=== PATIENT | male | born 1995 | race Two or more races ===

== ENCOUNTER 2022-12-20 20:30 | Emergency (ER) | payer MEDICAID, OTHER ==
[~2022-12-20] VITALS: Ht 182.9 cm; Wt 67.0 kg
[2022-12-20 21:00] VITALS: BP 115/82
[2022-12-21] MEDS ORDERED: IBUP-1456 PO (02:07)
[2022-12-21] MEDS ORDERED: CYCL-837 PO (02:07)
== END 2022-12-21 02:20 | disposition home or self-care (01) ==
LOC: ER 20:34
DX: S16.1XXA Strain of muscle, fascia and tendon at neck level, initial encounter (principal); S29.012A Strain of muscle and tendon of back wall of thorax, initial encounter; S32.039D Unspecified fracture of third lumbar vertebra, subsequent encounter for fracture with routine healing; V43.62XA Car passenger injured in collision with other type car in traffic accident, initial encounter; Y93.89 Activity, other specified; Y92.488 Other paved roadways as the place of occurrence of the external cause; Y99.8 Other external cause status
CPT/HCPCS: 72080; 72125; 72131

== ENCOUNTER 2024-07-01 23:25 | Emergency (ER) | payer MEDICAID, OTHER ==
[~2024-07-01] VITALS: Ht 182.9 cm; Wt 64.6 kg
[~2024-07-01 23:25] MED LIST: CYCL-837 PO; IBUP-1456 PO
[2024-07-01 23:40] VITALS: BP 108/61; PULSE 102; RESP 18; O2SAT 95
[2024-07-02 01:06] VITALS: TEMP 99.9
[2024-07-02] MEDS: ACETAMINOPHEN 500 MG TAB or CAP PO ONE (01:06)
[2024-07-02] MEDS: KETOROLAC TROMETH 60MG/2ML VIAL IM ONE (01:22)
[2024-07-02 01:56] LABS: COVID19 ANTIGEN SOFIA FIA NEGATIVE (NEGATIVE); Rapid Influenza A Negative (Negative); Rapid Influenza B Negative (Negative)
== END 2024-07-02 02:14 | disposition left against medical advice (07) ==
LOC: ER 23:25
DX: M79.10 Myalgia, unspecified site (principal); R50.9 Fever, unspecified; I10 Essential (primary) hypertension; Z20.822 Contact with and (suspected) exposure to COVID-19; Z53.21 Procedure and treatment not carried out due to patient leaving prior to being seen by health care provider
CPT/HCPCS: 36415; 87426; 87804; 96372; J1885